=== PATIENT | male | born 1975 | race Caucasian/White ===

== ENCOUNTER 2019-01-22 10:46 | Emergency (ER) | payer BC, MEDICAID, OTHER ==
[2019-01-22] MEDS ORDERED: Tetracaine HCl/PF 0.5% 4 ML Bottle EYEBOTH ONE (10:59)
--- NOTE | 2019-01-22 10:59 | EDM.PDOC ---
ED HPI GENERAL MEDICAL PROBLEM - General Chief Complaint: Eye Problems Stated Complaint: EYE COMPLAINT Time Seen by Provider: 01/22/19 10:58 Source of Information: Reports: Patient History Limitations: Reports: No Limitations - History of Present Illness INITIAL COMMENTS - FREE TEXT/NARRATIVE: HISTORY AND PHYSICAL: History of present illness: Patient is a 43-year-old male presents to the ED with complaint of right eye pain. He states his eye started bothering her 3 days ago and has been red and watery. He denies any injury or scratches to the eye. He states it is slightly blurry due to the tearing. He has been rubbing his eyes recently due to the itching and irritation. He notes having some pus in the corner of the eye this morning. Left eye was slightly irritated this morning as well but has since resolved. He denies headache, fever, chills. Patient normally wears glasses but does not have them today. Visual acuity is 20 /50 Review of systems: As per history of present illness and below otherwise all systems reviewed and negative. Past medical history: As per history of present illness and as reviewed below otherwise noncontributory. Surgical history: As per history of present illness and as reviewed below otherwise noncontributory. Social history: No reported history of drug or alcohol abuse. Family history: As per history of present illness and as reviewed below otherwise noncontributory. Physical exam: General: Patient sitting comfortably in no acute distress and nontoxic appearing HEENT: Right eye is injected with tearing noted. There is increased uptake of fluorescein to just inferior to the iris of the right eye. No periorbital erythema, swelling, tenderness of crepitus. Atraumatic, normocephalic, pupils reactive, negative for conjunctival pallor or scleral icterus, mucous membranes moist, throat clear, neck supple, nontender, trachea midline. No meningeal signs. Lungs: Clear to auscultation, breath sounds equal bilaterally, chest nontender. Heart: S1S2, regular, negative for clicks, rubs, or overt murmur. Abdomen: Soft, nondistended, nontender. Negative for masses or hepatosplenomegaly. Negative for costovertebral tenderness. No rigidity, rebound , guarding. Pelvis: Stable nontender. Genitourinary: Deferred. Rectal: Deferred. Extremities: Atraumatic, negative for cords or calf pain. Neurovascular unremarkable. Neuro: Awake, alert, oriented. Cranial nerves II through XII unremarkable. Cerebellum unremarkable. Motor and sensory unremarkable throughout. Exam nonfocal. Notes: Diagnostics: [place] exam Therapeutics: Tetracaine ophthalmic Prescriptions: Impression: Conjunctivitis, corneal abrasion Plan: Use eye drops as instructed. You may take benadryl or zyrtec as needed for itching. Follow-up with ophthalmology, please call the number provided to schedule appointment Return to ED as needed as discussed Definitive disposition and diagnosis as appropriate pending reevaluation and review of above. Right Eye Pain Score (Numeric/FACES): 5 - Related Data Allergies Allergy/AdvReac Type Severity Reaction Status Date / Time No Known Allergies Allergy Verified 01/22/19 11:01 Home Meds: Home Meds Ciprofloxacin [Ciprofloxacin 0.3% Ophth Soln] 1 drop OP Q2H #1 bottle 01/22/19 [ Rx] Past Medical History - Past Health History Medical/Surgical History: Denies Medical/Surgical History - Past Surgical History Musculoskeletal Surgical History: Reports: Other (See Below) Social & Family History - Family History Family Medical History: Noncontributory - Caffeine Use Caffeine Use: Reports: None ED ROS GENERAL - Review of Systems Review Of Systems: ROS reveals no pertinent complaints other than HPI. ED EXAM GENERAL W FULL EYE - Physical Exam Exam: See Below (see dictation) Course - Vital Signs Last Recorded V/S: Last Vital Signs Temp 97.2 F 01/22/19 10:59 Pulse 84 01/22/19 10:59 Resp 18 01/22/19 10:59 BP 155/102 H 01/22/19 10:59 Pulse Ox 100 01/22/19 10:59 - Orders/Labs/Meds Meds: Medications Discontinued Medications Generic Name Dose Route Start Last Admin Trade Name Freq PRN Reason Stop Dose Admin Tetracaine HCl 1 ml 01/22/19 10:59 Tetracaine 0.5% Steri-Unit Adrianne EYEBOTH 01/22/19 11:00 ASDIRECTED ONE Departure - Departure Time of Disposition: 11:23 Disposition: Home, Self-Care 01 Condition: Good Clinical Impression: Conjunctivitis, Corneal abrasion - Discharge Information Prescriptions: Ciprofloxacin [Ciprofloxacin 0.3% Ophth Soln] 1 drop OP Q2H #1 bottle Referrals: PCP,Unknown [Primary Care Provider] - Forms: ED Department Discharge Additional Instructions: The following information is given to patients seen in the emergency department who are being discharged to home. This information is to outline your options for follow-up care. We provide all patients seen in our emergency department with a follow-up referral. The need for follow-up, as well as the timing and circumstances, are variable depending upon the specifics of your emergency department visit. If you don't have a primary care physician on staff, we will provide you with a referral. We always advise you to contact your personal physician following an emergency department visit to inform them of the circumstance of the visit and for follow-up with them and/or the need for any referrals to a consulting specialist. The emergency department will also refer you to a specialist when appropriate. This referral assures that you have the opportunity for follow-up care with a specialist. All of these measure are taken in an effort to provide you with optimal care, which includes your follow-up. Under all circumstances we always encourage you to contact your private physician who remains a resource for coordinating your care. When calling for follow-up care, please make the office aware that this follow-up is from your recent emergency room visit. If for any reason you are refused follow-up, please contact the [facility] Emergency Department at and asked to speak to the emergency department charge nurse. [facility] [address] [place] [id number] [facility] [address] [place] [id number] Use eye drops as instructed. You may take benadryl or zyrtec as needed for itching. Follow-up with ophthalmology, please call the number provided to schedule appointment Return to ED as needed as discussed
[2019-01-22 11:12] VITALS: BP 155/102; PULSE 84
== END 2019-01-22 11:35 | disposition home or self-care (01) ==
LOC: MW.ED 10:46
DX: S05.01XA Injury of conjunctiva and corneal abrasion without foreign body, right eye, initial encounter (principal); H10.9 Unspecified conjunctivitis; X58.XXXA Exposure to other specified factors, initial encounter
CPT/HCPCS: 99282; 99283

== ENCOUNTER 2023-01-14 09:16 | Emergency (ER) | payer BC ==
[2023-01-14 09:34] VITALS: BP 137/83; PULSE 82
== END 2023-01-14 11:10 | disposition home or self-care (01) ==
LOC: MW.ED 09:16
DX: S89.91XA Unspecified injury of right lower leg, initial encounter (principal); F17.210 Nicotine dependence, cigarettes, uncomplicated; W10.9XXA Fall (on) (from) unspecified stairs and steps, initial encounter
CPT/HCPCS: 73562-26-RT; 73562-RT; 99283; 99284

== ENCOUNTER 2023-04-17 21:21 | Emergency (ER) | payer BC ==
[2023-04-17] MEDS ORDERED: Ketorolac 30 MG/ML SDV IM ONE (22:36)
[2023-04-17] MEDS ORDERED: Acetaminophen 325 MG Tab PO ONE (22:37)
[2023-04-17] MEDS ORDERED: Lidocaine 4% 1 each Patch TOP PRN (22:37)
[2023-04-17 23:46] VITALS: BP 110/70; PULSE 78
== END 2023-04-17 23:45 | disposition home or self-care (01) ==
LOC: MW.ED 21:21
DX: M25.512 Pain in left shoulder (principal); W00.0XXA Fall on same level due to ice and snow, initial encounter
CPT/HCPCS: 71046; 73010; 96372; 99283; A9270; J1885

== ENCOUNTER 2024-05-06 16:24 | Emergency (ER) | payer OTHER, BC ==
[2024-05-06 16:49] VITALS: PULSE 75
[2024-05-06] MEDS: traMADol 50 MG Tab PO STA (17:29)
[2024-05-06] MEDS: Cyclobenzaprine 10 MG Tab PO STA (17:31)
[2024-05-06 19:30] VITALS: BP 118/76
== END 2024-05-06 19:28 | disposition home or self-care (01) ==
LOC: MW.ED 16:24
DX: S13.4XXA Sprain of ligaments of cervical spine, initial encounter (principal); F17.210 Nicotine dependence, cigarettes, uncomplicated; Z75.8 Other problems related to medical facilities and other health care; V49.40XA Driver injured in collision with unspecified motor vehicles in traffic accident, initial encounter
CPT/HCPCS: 70450; 72125; 72128; 72131; 99284; A9270; 99283

== ENCOUNTER 2025-05-18 17:09 | Emergency (ER) | payer BC ==
[2025-05-18 17:23] VITALS: PULSE 75
[2025-05-18] MEDS: Orphenadrine 60 MG/2 ML Inj IM ONE (18:09)
[2025-05-18] MEDS: Dexamethasone Sod Phos Preservative Free 10 MG/ML Vial IM ONE (18:09)
[2025-05-18] MEDS: Ketorolac 30 MG/ML SDV IM ONE (18:09)
[2025-05-19 01:13] VITALS: BP 130/72
== END 2025-05-18 19:45 | disposition home or self-care (01) ==
LOC: MW.ED 17:09
DX: M51.379 Other intervertebral disc degeneration, lumbosacral region without mention of lumbar back pain or lower extremity pain (principal); F17.200 Nicotine dependence, unspecified, uncomplicated; Z79.899 Other long term (current) drug therapy
CPT/HCPCS: 72131; 96372; 99283; A9270; J1100; J1171; J1885; J2360